=== PATIENT | male | born 1965 | race Caucasian/White ===

== ENCOUNTER 2016-09-26 11:33 | Emergency (ER) | payer OTHER ==
[~2016-09-26] VITALS: Ht 185.4 cm; Wt 90.9 kg
[2016-09-26] MEDS ORDERED: GuaiFENesin/D-METHORPHAN [SUGAR-FREE] 200-20MG/10 ML SYRUP UDCUP PO ONE (12:15)
[2016-09-26] MEDS ORDERED: ACETAMINOPHEN 325 MG TABLET PO ONE (12:15)
[2016-09-26 12:28] VITALS: BP 134/102
== END 2016-09-26 12:29 | disposition home or self-care (01) ==
LOC: EMS 11:36
DX: J06.9 Acute upper respiratory infection, unspecified (principal); R03.0 Elevated blood-pressure reading, without diagnosis of hypertension; R19.7 Diarrhea, unspecified; R11.0 Nausea; F17.210 Nicotine dependence, cigarettes, uncomplicated
CPT/HCPCS: 99283